=== PATIENT | female | born 1950 | race Caucasian/White ===

== ENCOUNTER → 2016-08-25 | Outpatient (CLI) | payer OTHER ==
[~2016-08-25] MED LIST: AMLO-110 PO; ASCO100T PO; ASPEC81 PO; ATEN50TA8 PO; B-COTAB18 PO; BIOT1POW3 PO; BUPR-79 PO; CHOL100010 PO; CIPR-255 PO; FLAX12003 PO; IBUP-1050 PO; LEVO200T PO; LORA-741 PO; LXP/10 PO; MAGN30TA4 PO; MISCCAP80 PO; OMEG10007 PO; PANT40TA PO; PHEN1CAP PO; PHEN37.585 PO; TOPI25TA99 PO; [UNRECOGNIZED DRUG - CODE] PO
== END | disposition home or self-care (01) ==
LOC: C.LABBC 11:10
PROVIDERS: ATTEND Family Medicine
DX: E03.9 Hypothyroidism, unspecified (principal)

== ENCOUNTER → 2016-10-07 | Outpatient (CLI) | payer OTHER | END | disposition home or self-care (01) | LOC: C.LABBC 09:34 | PROVIDERS: ATTEND Family Medicine | DX: E03.9 Hypothyroidism, unspecified (principal) ==

== ENCOUNTER → 2016-11-07 | Outpatient (CLI) | payer OTHER ==
--- NOTE | 2016-11-07 10:13 | DIAGNOSTIC IMAGING REPORT ---
ULTRASOUND OF THE THYROID GLAND CLINICAL HISTORY: Hypothyroidism. COMPARISON STUDY: No priors. TECHNIQUE: Real-time, grayscale, and color flow sonography of the thyroid gland is performed utilizing a high-frequency linear transducer. Images are reviewed in the transverse and longitudinal planes. FINDINGS: Right lobe: The right lobe of the thyroid gland is atrophic and homogeneous in echotexture, measuring 2.5 x 0.8 x 1.1 cm. Left lobe: The left lobe of the thyroid gland is atrophic and homogeneous in echotexture, measuring 1.8 x 0.7 x 0.6 cm. Isthmus: The thyroid isthmus is normal in appearance and measures 0.2 cm in AP diameter. IMPRESSION: The thyroid gland is atrophic. No discrete lesion is identified. Electronically signed by: Nik Dacosta M.D. 11/07/2016 10:12 AM Dictated Date/Time: 11/07/2016 10:11 AM
== END | disposition home or self-care (01) ==
LOC: C.ULTRBC 09:48
PROVIDERS: ATTEND Internal Medicine Endocrinology, Diabetes & Metabolism
DX: E03.4 Atrophy of thyroid (acquired) (principal)

== ENCOUNTER → 2016-11-18 | Outpatient (CLI) | payer OTHER ==
[~2016-11-18] MED LIST changes: -ASCO100T PO; +ASCO100T4 PO
== END | disposition home or self-care (01) ==
LOC: C.MAMM 15:26
PROVIDERS: ATTEND Internal Medicine Endocrinology, Diabetes & Metabolism
DX: M85.88 Other specified disorders of bone density and structure, other site (principal); M85.851 Other specified disorders of bone density and structure, right thigh; M85.852 Other specified disorders of bone density and structure, left thigh

== ENCOUNTER → 2016-12-16 | Outpatient (CLI) | payer OTHER ==
[2016-12-16 10:53] LABS: HEMATOCRIT 45.4 % (37-47)
[2016-12-16 11:07] LABS: ALT/SGPT 52 U/L (12-78); BLOOD UREA NITROGEN 15 mg/dl (7-18); BUN/CREATININE RATIO 13.9 (10-20); CALCIUM 9.3 mg/dl (8.5-10.1); CARBON DIOXIDE 27 mmol/L (21-32); CHLORIDE 109 mmol/L (98-107); GLUCOSE 98 mg/dl (70-99); POTASSIUM 4.1 mmol/L (3.5-5.1); SODIUM 143 mmol/L (136-145)
[2016-12-16 11:19] LABS: CHOLESTEROL 192 mg/dl (0-200); CHOLESTEROL/HDL RATIO 3.5; HDL CHOLESTEROL 55 mg/dl; LDL CHOLESTEROL CALCULATED 78 mg/dl; TRIGLYCERIDES 295 mg/dl (0-150); VERY LOW DENSITY LIPOPROT CALC 59 mg/dl
[2016-12-16 11:29] LABS: ESTIMATED AVERAGE GLUCOSE 108 mg/dl; HA1C FLAG Normal (Normal)
--- NOTE | 2016-12-22 08:47 | CODING QUERY MEDICAL NECESSITY ---
SUPPORTING DIAGNOSIS NEEDED Dr. Macdonald, A supporting diagnosis is required for the test/procedure performed on this patient in order for us to be reimbursed by the patient's insurance. Please provide a supporting diagnosis for the following test/procedure listed below next to the test name along with your signature. *If there is no additional diagnosis for this patient that would support the following test/procedure please document that below next to the test/procedure. Test(s)/Procedure(s) that require a supporting diagnosis: * 36609 GLYCATED HEMOGLOBIN DIAGNOSIS: DATE OF SERVICE: 12/16/16 Provider Signature: Date: Thank you Luis Daniel May [facility] Information Management Once completed, please kindly fax back to [phone] For questions please call [phone]
== END | disposition home or self-care (01) ==
LOC: C.LABBC 07:59
PROVIDERS: ATTEND Internal Medicine Endocrinology, Diabetes & Metabolism
DX: M79.1 Myalgia (principal); E66.9 Obesity, unspecified; E03.9 Hypothyroidism, unspecified; I10 Essential (primary) hypertension; E78.5 Hyperlipidemia, unspecified; Z68.37 Body mass index [BMI] 37.0-37.9, adult

== ENCOUNTER → 2017-02-02 | Outpatient (CLI) | payer OTHER ==
[2017-02-02 11:47] LABS: URINE COLLECTION TIME 24 HOURS; URINE SODIUM 24 HR 150 mmol/24 (40-220)
[2017-02-02 11:48] LABS: CALCIUM URINE < 5.0 mg/dl
== END | disposition home or self-care (01) ==
LOC: C.LABBC 07:46
PROVIDERS: ATTEND Internal Medicine Endocrinology, Diabetes & Metabolism
DX: M85.80 Other specified disorders of bone density and structure, unspecified site (principal)

== ENCOUNTER → 2017-03-05 | Outpatient (CLI) | payer OTHER ==
[~2017-03-05] MED LIST changes: +ASCO100T PO; -ASCO100T4 PO
[2017-03-09 16:36] LABS: GAMMA GLOBULIN 0.8 G/DL (0.8-1.7); TOTAL PROTEIN 6.7 G/DL (6.2-8.3)
== END | disposition home or self-care (01) ==
LOC: C.LABBC 12:40
PROVIDERS: ATTEND Internal Medicine Endocrinology, Diabetes & Metabolism
DX: M85.80 Other specified disorders of bone density and structure, unspecified site (principal)

== ENCOUNTER → 2017-05-01 | Outpatient (CLI) | payer OTHER ==
[2017-05-01 17:09] LABS: BLOOD UREA NITROGEN 18 mg/dl (7-18); BUN/CREATININE RATIO 16.5 (10-20); CALCIUM 8.9 mg/dl (8.5-10.1); CARBON DIOXIDE 24 mmol/L (21-32); CHLORIDE 108 mmol/L (98-107); GLUCOSE 115 mg/dl (70-99); MAGNESIUM 1.7 mg/dl (1.8-2.4); POTASSIUM 3.5 mmol/L (3.5-5.1); SODIUM 140 mmol/L (136-145)
[2017-05-01 17:20] LABS: MANUAL MICROSCOPIC REQUIRED? NO; REVIEW REQ? YES; URINE APPEARANCE SLIGHTLY CLOUDY (CLEAR); URINE COLOR ORANGE
[2017-05-01 17:20] LABS: THYROID STIMULATING HORMONE 0.285 uIu/ml (0.300-4.500)
[2017-05-01 17:21] LABS: SULFASALICYLIC ACID NEG (NEG)
[2017-05-01 17:25] LABS: URINE MUCUS PRESENT (NONE PRSENT)
== END | disposition home or self-care (01) ==
LOC: C.LABBC 15:18
PROVIDERS: ATTEND Family Medicine
DX: R30.0 Dysuria (principal); E03.9 Hypothyroidism, unspecified; I10 Essential (primary) hypertension; E78.5 Hyperlipidemia, unspecified; E83.42 Hypomagnesemia; E55.9 Vitamin D deficiency, unspecified

== ENCOUNTER → 2017-05-05 | Outpatient (CLI) | payer OTHER | END | disposition home or self-care (01) | LOC: C.LABBC 07:45 | PROVIDERS: ATTEND Family Medicine | DX: R30.0 Dysuria (principal); E03.9 Hypothyroidism, unspecified; I10 Essential (primary) hypertension; E78.5 Hyperlipidemia, unspecified; E83.42 Hypomagnesemia ==

== ENCOUNTER → 2017-05-20 | Outpatient (CLI) | payer OTHER ==
--- NOTE | 2017-05-21 13:54 | MAMMOGRAPHY REPORT ---
BILATERAL DIGITAL SCREENING MAMMOGRAM TOMOSYNTHESIS WITH CAD: 05/20/2017 CLINICAL HISTORY: Routine screening. Patient has no complaints. TECHNIQUE: Breast tomosynthesis in addition to standard 2D mammography was performed. Current study was also evaluated with a Computer Aided Detection (CAD) system. COMPARISON: Comparison is made to exams dated: 04/09/2016 mammogram, 04/02/2015 mammogram, 03/20/2014 ma mmogram, 03/16/2013 mammogram, 03/12/2012 mammogram, and 03/10/2011 mammogram - [facility] nter. BREAST COMPOSITION: There are scattered areas of fibroglandular density in both breasts. FINDINGS: No suspicious masses, calcifications, or areas of architectural distortion are noted in ei ther breast. There has been no significant interval change compared to prior exams. IMPRESSION: ACR BI-RADS CATEGORY 1: NEGATIVE There is no mammographic evidence of malignancy. A 1 year screening mammogram is recommended. The pa tient will receive written notification of the results. Approximately 10% of breast cancers are not detected with mammography. A negative mammographic report should not delay biopsy if a clinically suggestive mass is present. Nel Knight M.D. ah/:05/20/2017 16:04:00 Tool Inspector: Olive BUI(Evelin)(Abraham)(BD), [facility] letter sent: Normal 1/2 BI-RADS Code: ACR BI-RADS Category 1: Negative
== END | disposition home or self-care (01) ==
LOC: C.MAMM 15:33
PROVIDERS: ATTEND Family Medicine
DX: Z12.31 Encounter for screening mammogram for malignant neoplasm of breast (principal)

== ENCOUNTER → 2017-06-24 | Outpatient (CLI) | payer OTHER ==
[~2017-06-24] MED LIST changes: -ASCO100T PO; +ASCO100T4 PO
[2017-06-24 17:03] LABS: BLOOD UREA NITROGEN 14 mg/dl (7-18); BUN/CREATININE RATIO 13.7 (10-20); CALCIUM 8.9 mg/dl (8.5-10.1); CARBON DIOXIDE 24 mmol/L (21-32); CHLORIDE 108 mmol/L (98-107); GLUCOSE 121 mg/dl (70-99); POTASSIUM 3.6 mmol/L (3.5-5.1); SODIUM 140 mmol/L (136-145)
== END | disposition home or self-care (01) ==
LOC: C.LABBC 14:59
PROVIDERS: ATTEND Internal Medicine Endocrinology, Diabetes & Metabolism
DX: M85.80 Other specified disorders of bone density and structure, unspecified site (principal); E03.9 Hypothyroidism, unspecified

== ENCOUNTER → 2017-10-07 | Outpatient (CLI) | payer OTHER | END | disposition home or self-care (01) | LOC: C.LABSPEC 12:24 | PROVIDERS: ATTEND Internal Medicine Endocrinology, Diabetes & Metabolism | DX: M85.80 Other specified disorders of bone density and structure, unspecified site (principal) ==